=== PATIENT | male | born 1930 | race Two or more races ===

== ENCOUNTER 2018-05-25 14:21 | Emergency (ER) | payer MEDICARE, MEDICAID ==
[~2018-05-25] VITALS: Ht 167.6 cm; Wt 81.0 kg
[2018-05-25] MEDS ORDERED: TETANUS, DIPHTHERIA, PERTUSSIS VAC/PF 0.5ML (>7YR OLD) IM ONE (18:30)
[2018-05-25] MEDS ORDERED: BACITRACIN ZINC OINT UDPKT TOP ONE (18:30)
[2018-05-25] MEDS ORDERED: LIDOCAINE HCL/PF 1% 2ML VIAL INFIL ONE (18:30)
[2018-05-25] MEDS ORDERED: LIDOCAINE HCL/PF 1% 10 MG/ML 5ML VIAL IJ ONE (19:00)
[2018-05-25] MEDS ORDERED: LIDOCAINE HCL 1% 10 MG/ML 10ML VIAL ONE (19:17)
[2018-05-25 19:47] VITALS: BP 162/63
== END 2018-05-25 20:06 | disposition home or self-care (01) ==
LOC: ER 17:26
DX: S61.211A Laceration without foreign body of left index finger without damage to nail, initial encounter (principal); I10 Essential (primary) hypertension; W26.0XXA Contact with knife, initial encounter; Y93.E9 Activity, other interior property and clothing maintenance; Y92.090 Kitchen in other non-institutional residence as the place of occurrence of the external cause; Y99.8 Other external cause status
CPT/HCPCS: 12002; 90471; 90715; 99283; J3490